=== PATIENT | male | born 1945 | race Caucasian/White ===

== ENCOUNTER → 2016-11-19 | Outpatient (CLI) | payer MEDICARE, OTHER | LOC: GMAH 11:28 | PROVIDERS: ATTEND Family Medicine | DX: E78.2 Mixed hyperlipidemia (principal); Z12.5 Encounter for screening for malignant neoplasm of prostate | CPT/HCPCS: 84443; 84550; G0103 ==

== ENCOUNTER → 2017-11-25 | Outpatient (CLI) | payer MEDICARE, OTHER | END | disposition home or self-care (01) | LOC: GMAH 10:16 | PROVIDERS: ATTEND Family Medicine | DX: Z12.5 Encounter for screening for malignant neoplasm of prostate (principal); E78.2 Mixed hyperlipidemia | CPT/HCPCS: 84443; 84550; G0103 ==

== ENCOUNTER → 2018-11-23 | Outpatient (CLI) | payer MEDICARE, OTHER | LOC: GMAH 10:33 | PROVIDERS: ATTEND Family Medicine | DX: I10 Essential (primary) hypertension (principal); Z12.5 Encounter for screening for malignant neoplasm of prostate | CPT/HCPCS: 84443; 84550; G0103 ==

== ENCOUNTER 2019-10-18 05:06 | Day surgery (SDC) | payer MEDICARE, OTHER ==
[2019-10-18] MEDS ORDERED: DEXAMETHASONE 0.1% OPHTH SOL 1 DROP LEFT_EYE ONE (08:02)
[2019-10-18] MEDS ORDERED: BRIMONIDINE 0.2% OPHTH DROPS LEFT_EYE ONE (08:02)
[2019-10-18] MEDS ORDERED: LIDOCAINE 1% MPF 2 ML VIAL INJ ONE (08:02)
[2019-10-18] MEDS ORDERED: TOBRAMYCIN SULF 0.3 % OPHT SOL 1 DROP LEFT_EYE ONE (08:02)
[2019-10-18] MEDS ORDERED: PROPARACAINE 0.5% OPHTH SOL 15 ML BTTL LEFT_EYE ONE (08:02)
[2019-10-18] MEDS ORDERED: MIDAZOLAM INJ 2 MG/2 ML VIAL ONE (08:05)
[2019-10-18] MEDS ORDERED: MOXIFLOXACIN HCL (OPHTH) 1 DROP DROPS LEFT_EYE ONE (08:45)
== END 2019-10-18 08:45 | disposition home or self-care (01) ==
LOC: AMB 05:06
PROVIDERS: ATTEND Ophthalmology
DX: E11.36 Type 2 diabetes mellitus with diabetic cataract (principal); H25.12 Age-related nuclear cataract, left eye; Z88.5 Allergy status to narcotic agent; Z88.8 Allergy status to other drugs, medicaments and biological substances; Z79.01 Long term (current) use of anticoagulants; Z79.84 Long term (current) use of oral hypoglycemic drugs; Z79.899 Other long term (current) drug therapy
CPT/HCPCS: 00142; 36416; 66984; 82948; J2250

== ENCOUNTER 2019-12-06 05:41 | Day surgery (SDC) | payer MEDICARE, OTHER ==
[2019-12-06] MEDS ORDERED: MOXIFLOXACIN HCL (OPHTH) 1 DROP DROPS ONE (06:32)
[2019-12-06] MEDS ORDERED: PROPARACAINE 0.5% OPHTH SOL 15 ML BTTL ONE (06:32)
[2019-12-06] MEDS ORDERED: TROP 1%/CYCLOPEN 1%/PHENYL 2% DROPS ONE (06:33)
[2019-12-06] MEDS ORDERED: BRIMONIDINE 0.2% OPHTH DROPS RIGHT_EYE ONE (09:05)
[2019-12-06] MEDS ORDERED: TOBRAMYCIN SULF 0.3 % OPHT SOL 1 DROP RIGHT_EYE ONE (09:05)
[2019-12-06] MEDS ORDERED: LIDOCAINE 1% 2 ML VIAL INJ ONE (09:05)
[2019-12-06] MEDS ORDERED: MOXIFLOXACIN HCL (OPHTH) 1 DROP DROPS RIGHT_EYE ONE (09:05)
[2019-12-06] MEDS ORDERED: PROPARACAINE 0.5% OPHTH SOL 15 ML BTTL RIGHT_EYE ONE (09:05)
[2019-12-06] MEDS ORDERED: DEXAMETHASONE 0.1% OPHTH SOL 1 DROP RIGHT_EYE ONE (09:05)
[2019-12-06] MEDS ORDERED: MIDAZOLAM INJ 2 MG/2 ML VIAL ONE (09:12)
== END 2019-12-06 10:15 | disposition home or self-care (01) ==
LOC: AMB 05:41
PROVIDERS: ATTEND Ophthalmology
DX: E11.36 Type 2 diabetes mellitus with diabetic cataract (principal); H25.11 Age-related nuclear cataract, right eye; Z88.5 Allergy status to narcotic agent; Z88.8 Allergy status to other drugs, medicaments and biological substances; Z79.01 Long term (current) use of anticoagulants; Z79.899 Other long term (current) drug therapy
CPT/HCPCS: 00142; 36416; 66984; 82948; J2250

== ENCOUNTER → 2020-04-11 | Outpatient (CLI) | payer MEDICARE, OTHER | LOC: ECHO 08:45 | PROVIDERS: ATTEND Family Medicine | DX: R60.0 Localized edema (principal); I51.7 Cardiomegaly ==

== ENCOUNTER 2020-09-24 16:53 | Emergency (ER) | payer MEDICARE, OTHER ==
[2020-09-24] MEDS ORDERED: SODIUM CHLORIDE 0.9% (FLUSH) 10 ML SYG IV PRN (17:28)
[2020-09-24] MEDS ORDERED: ACETAMINOPHEN 500 MG TAB PO ONE (17:28)
[2020-09-24] MEDS ORDERED: SODIUM CHLORIDE 0.9% 1000ML 1,000 ML IVS ONE (17:28)
--- NOTE | 2020-09-24 17:31 | ED.PDOC ---
History of Present Illness - General Time Seen by Provider: 09/24/20 17:12 Source: patient, RN notes reviewed, Vital Signs reviewed, family Exam Limitations: no limitations - History of Present Illness Initial Comments: Patient presents to ED for evaluation of fever and congestion. States he was sent over from urgent care due to having a fever of 101. States he was mowing 5 days ago and afterward developed frontal headache and congestion. This persisted so he went to urgent care today for evaluation and was sent to ED. He denies sore throat, chest pain, shortness of breath, abdominal pain, nausea, vomiting, diarrhea or any urinary symptoms. Has been taking [id number] decongestants at home with some relief. He denies any recent COVID-19 exposures or sick contacts. Reports history of atrial fibrillation. Allergies/Adverse Reactions: Allergies NO KNOWN ALLERGY Allergy (Verified 10/18/19 07:00) Home Medications: Ambulatory Orders Apixaban [Eliquis] 5 mg PO BID 10/18/19 Ascorbic Acid [Vitamin C] 500 mg PO DAILY 10/18/19 Glucosamine-Chondroitin [Glucosamine & Chondroitin 500-400 mg] 2 cap PO DAILY 10/18/19 Metformin HCl [Metformin Hydrochloride E] 500 mg PO BID 10/18/19 Multiple Vitamins W/ Minerals [Mens Multivitamin] 1 tab PO DAILY 10/18/19 [place]-3 Fatty Acids [Fish Oil] 2 cap PO DAILY 10/18/19 Pravastatin Sodium 40 mg PO DAILY 10/18/19 Prednisone 60 mg PO DAILY 5 Days #15 tab 09/24/20 Review of Systems - Review of Systems Constitutional: States: fever, malaise. Denies: chills EENTM: States: nose congestion. Denies: ear pain, throat pain, throat swelling Respiratory: States: cough. Denies: short of breath, wheezing Cardiology: Denies: chest pain, palpitations, syncope Gastrointestinal/Abdominal: Denies: abdominal pain, diarrhea, nausea, vomiting Genitourinary: Denies: dysuria Musculoskeletal: Denies: back pain, joint pain Skin: Denies: rash All other Systems: Reviewed and Negative Past Medical History (General) - Patient Medical History Hx Congestive Heart Failure: No Hx Diabetes: Yes - 194 Hx MRSA: No Family Medical History - Family History Mother Family History: No Known Living Status: Physical Exam - Physical Exam General Appearance: Alert, Comfortable, No apparent distress, Other - Seated on bed in no distress. Nontoxic appearing Ears, Nose, Throat: other - TTP bilateral maxillary sinuses Neck: full range of motion, supple, other - no meningismus Respiratory: chest non-tender, lungs clear, normal breath sounds, no respiratory distress, no accessory muscle use Cardiovascular/Chest: regular rate, rhythm, no edema, tachycardia, irregularly irregular Gastrointestinal/Abdominal: non tender, soft, no pulsatile mass Back Exam: normal inspection, no vertebral tenderness Extremity: non-tender, normal inspection, no pedal edema Neurologic: no motor/sensory deficits, alert, normal mood/affect Skin Exam: normal color Progress - Progress Progress: 09/24/20 19:40 Patient presents to ED with 4-day history of nasal congestion and sinus pressure. He denies feeling short of breath, fatigue or chest pain. His COVID- 19 swab is positive. Chest x-ray is unremarkable. He denies feeling short of breath and his O2 sats on room air is 91 to 93%. I have offered admission for COVID-19 and further evaluation, but patient states he feels fine and declines. I have discussed that at any point if he gets more short of breath he will need to return to ED immediately and patient agrees with this plan. I have asked him to follow-up with his PCP in 1 to 2 days for continued evaluation. Will treat with Decadron IV here and start 5-day course of prednisone at home. Strict return precautions given. Self quarentine discussed. - Results/Orders Results/Orders: EKG-@1737- atrial fibrillation, rate 98, nml QRS interval, nonspecific ST abnormality EKG @ 1844- afib, rate 97, nml QRS interval, nonspecific ST abnormality CHEST XRAY EXAM DESCRIPTION: Chest,1 View CLINICAL HISTORY: cough COMPARISON: None FINDINGS: Cardiac silhouette is within normal limits. Imaging of the lower lungs is degraded by superimposed soft tissues. EKG leads project over the chest. There is no focal parenchymal or pleural disease. There is no acute osseous process visualized. IMPRESSION: Imaging of the lower lungs are degraded by superimposed soft tissues. Recommend follow-up. COVID SWAB POSITIVE 09/24/20 17:28 Sodium Chloride 0.9% (Flush) [Saline Flush Syringe] 10 ml IV PRN PRN EKG Stat Pulse Ox Stat URINALYSIS Stat 09/24/20 18:06 BLOOD CULTURE Stat 09/24/20 19:00 EKG STAT 09/24/20 19:30 LACTIC ACID Q2H Laboratory Results - last 24 hr 09/24/20 09/24/20 09/24/20 18:06 18:06 18:06 WBC 3.5 L RBC 4.25 L Hgb 14.0 Hct 40.8 L MCV 96.1 H MCH 33.0 H MCHC 34.4 RDW 12.7 Plt Count 201 MPV 7.5 Absolute Neuts (auto) 2.40 Absolute Lymphs (auto) 0.80 L Absolute Monos (auto) 0.30 Absolute Eos (auto) 0.00 Absolute Basos (auto) 0.00 Neutrophils % 68.1 Lymphocytes % 23.1 Monocytes % 8.0 Eosinophils % 0.3 L Basophils % 0.5 PT 10.1 INR 1.02 PTT (SP) 30.1 Sodium 136 Potassium 4.4 Chloride 98 L Carbon Dioxide 24 Anion Gap 18.4 H BUN 16 Creatinine 0.92 BUN/Creatinine Ratio 17.4 Random Glucose 120 H Serum Osmolality 274.3 L Lactic Acid Calcium 9.0 Total Bilirubin 0.6 AST 45 H ALT 48 Alkaline Phosphatase 80 Serum Total Protein 7.6 Albumin 4.3 Globulin 3.3 Albumin/Globulin Ratio 1.3 09/24/20 18:06 WBC RBC Hgb Hct MCV MCH MCHC RDW Plt Count MPV Absolute Neuts (auto) Absolute Lymphs (auto) Absolute Monos (auto) Absolute Eos (auto) Absolute Basos (auto) Neutrophils % Lymphocytes % Monocytes % Eosinophils % Basophils % PT INR PTT (SP) Sodium Potassium Chloride Carbon Dioxide Anion Gap BUN Creatinine BUN/Creatinine Ratio Random Glucose Serum Osmolality Lactic Acid 2.0 Calcium Total Bilirubin AST ALT Alkaline Phosphatase Serum Total Protein Albumin Globulin Albumin/Globulin Ratio Departure - Departure Clinical Impression: COVID-19 Atrial fibrillation Qualifiers: Atrial fibrillation type: persistent (not longstanding) Qualified Code(s): I48.19 - Other persistent atrial fibrillation; I48.1 - Persistent atrial fibrillation Time of Disposition: 19:44 Disposition: Discharge to Home or Self Care Condition: Fair Instructions: Coronavirus Disease 2019 (COVID-19) Diet: resume usual diet Activity: increase activity as tolerated Referrals: Yaakov Arvizu MD [Primary Care Provider] - 1-2 Days Prescriptions: Prednisone 60 mg PO DAILY 5 Days #15 tab Home Medications: Ambulatory Orders Apixaban [Eliquis] 5 mg PO BID 10/18/19 Ascorbic Acid [Vitamin C] 500 mg PO DAILY 10/18/19 Glucosamine-Chondroitin [Glucosamine & Chondroitin 500-400 mg] 2 cap PO DAILY 10/18/19 Metformin HCl [Metformin Hydrochloride E] 500 mg PO BID 10/18/19 Multiple Vitamins W/ Minerals [Mens Multivitamin] 1 tab PO DAILY 10/18/19 [place]-3 Fatty Acids [Fish Oil] 2 cap PO DAILY 10/18/19 Pravastatin Sodium 40 mg PO DAILY 10/18/19 Prednisone 60 mg PO DAILY 5 Days #15 tab 09/24/20 Comments: Return to ED for difficulty breathing or any worsening of symptoms
[2020-09-24 18:13] VITALS: TEMP 99.6
--- NOTE | 2020-09-24 18:24 | RAD ---
EXAM DESCRIPTION: Chest,1 View CLINICAL HISTORY: cough COMPARISON: None FINDINGS: Cardiac silhouette is within normal limits. Imaging of the lower lungs is degraded by superimposed soft tissues. EKG leads project over the chest. There is no focal parenchymal or pleural disease. There is no acute osseous process visualized. IMPRESSION: Imaging of the lower lungs are degraded by superimposed soft tissues. Recommend follow-up. Electronically signed by: Ralph Jackson MD 09/24/2020 6:23 PM [facility]
[2020-09-24] MEDS ORDERED: DEXAMETHASONE INJ 10 MG/ML VIAL IV ONE (19:39)
[2020-09-24 20:22] VITALS: BP 100/73; O2SAT 90
== END 2020-09-24 20:10 | disposition home or self-care (01) ==
LOC: ER 16:53
DX: U07.1 COVID-19 (principal); I48.4 Atypical atrial flutter; E11.9 Type 2 diabetes mellitus without complications; Z79.84 Long term (current) use of oral hypoglycemic drugs; Z79.899 Other long term (current) drug therapy; Z79.01 Long term (current) use of anticoagulants
CPT/HCPCS: 36415; 71045; 80053; 83605; 85025; 85610; 85730; 87040; 87635; 93005; 94760; A4216; J1100; J7030

== ENCOUNTER 2020-09-28 12:42 | Inpatient (IN) | payer MEDICARE, OTHER ==
[2020-09-28] MEDS ORDERED: REMDESIVIR 200 MG in SODIUM CHLORIDE 0.9% 250ML 250 ML IVPB ONE (13:49)
[2020-09-28] MEDS ORDERED: DEXAMETHASONE INJ 4 MG/ML VIAL IV ONE (13:49)
--- NOTE | 2020-09-28 14:16 | CT ---
Study: CT Chest. Indication: covid, hypoxia Technique: CT imaging of the chest obtained without intravenous administration of contrast. This exam was performed according to our departmental dose-optimization program, which includes automated exposure control, adjustment of the mA and/or kV according to patient size and/or use of iterative reconstruction technique. Comparison: None. Findings: Atherosclerosis and coronary arteries and aorta. Mild cardiomegaly. Scattered reactive size mediastinal lymph nodes. Degenerative changes of the spine noted. Extensive patchy areas of groundglass attenuation throughout the bilateral lungs most pronounced in the peripheral aspects. Findings concerning for pneumonia. No pleural effusion or pneumothorax. Impression: Extensive patchy groundglass opacities throughout bilateral lungs concerning for pneumonia but nonspecific. COVID-19 could give this appearance. Additional findings as above. Electronically signed by: Sundeep Merrill MD 09/28/2020 2:14 PM [employer]
[2020-09-28] MEDS ORDERED: PIPERACILLIN/TAZOBACTAM 3.375 GM in SODIUM CHLORIDE 0.9% 100ML 100 ML IVPB ONE (15:06)
--- NOTE | 2020-09-28 15:25 | ED.PDOC ---
History of Present Illness - General Chief Complaint: Respiratory Problem Time Seen by Provider: 09/28/20 12:48 Source: patient Exam Limitations: no limitations - History of Present Illness Initial Comments: The patient is a 74-year-old male presented emergency room secondary to worsening shortness of breath. The patient has known coronavirus for at least the last several days. He was started on oral steroids for it but was not placed on azithromycin secondary to long QT. The patient has been having increasing fevers over the last couple of days. No nausea or vomiting. He is saturating 86 to 88% on room air here and does not have oxygen at home. He does normally use CPAP at night. The patient is morbidly obese and does have significant coronary artery disease. Is also a diabetic. He is a high risk patient. The patient does appear pale. He is currently in atrial flutter but rate controlled. He does have a history of atrial fibrillation but is not on any rate control medications. He does already take Eliquis. Timing/Duration: other - 4 days Severity: moderate Improving Factors: nothing Worsening Factors: nothing Associated Symptoms: cough, malaise, shortness of breath Allergies/Adverse Reactions: Allergies NO KNOWN ALLERGY Allergy (Verified 10/18/19 07:00) Home Medications: Ambulatory Orders Apixaban [Eliquis] 5 mg PO BID 10/18/19 Ascorbic Acid [Vitamin C] 500 mg PO DAILY 10/18/19 Glucosamine-Chondroitin [Glucosamine & Chondroitin 500-400 mg] 2 cap PO DAILY 10/18/19 Metformin HCl [Metformin Hydrochloride E] 500 mg PO BID 10/18/19 Multiple Vitamins W/ Minerals [Mens Multivitamin] 1 tab PO DAILY 10/18/19 [place]-3 Fatty Acids [Fish Oil] 2 cap PO DAILY 10/18/19 Pravastatin Sodium 40 mg PO DAILY 10/18/19 Prednisone 60 mg PO DAILY 5 Days #15 tab 09/24/20 Review of Systems - Review of Systems Constitutional: States: fever, malaise, weakness - Generalized EENTM: States: nose congestion Respiratory: States: cough, short of breath Cardiology: States: no symptoms reported Gastrointestinal/Abdominal: States: no symptoms reported Genitourinary: States: no symptoms reported Musculoskeletal: States: no symptoms reported Skin: States: no symptoms reported Neurological: States: no symptoms reported Endocrine: States: no symptoms reported All other Systems: No Change from Baseline Past Medical History (General) - Patient Medical History Hx Seizures: No Hx Stroke: No Hx Dementia: No Hx Asthma: No Hx of COPD: No Hx Cardiac Disorders: Yes - A FIB Hx Congestive Heart Failure: No Hx Pacemaker: No Hx Hypertension: No Hx Thyroid Disease: No Hx Diabetes: Yes Hx Gastroesophageal Reflux: No Hx Renal Disease: No Hx Cancer: No Hx of HIV: No Hx Hepatitis C: No Hx MRSA: No Surgical History: no surgical history - Vaccination History Hx Tetanus, Diphtheria Vaccination: Yes Hx Influenza Vaccination: Yes Hx Pneumococcal Vaccination: Yes - Social History Hx Tobacco Use: No Hx Chewing Tobacco Use: No Hx Alcohol Use: No Hx Substance Use: No Hx Substance Use Treatment: No Hx Depression: No Feels Threatened In Home Enviroment: No Feels Threatened In a Relationship: No Hx Physical Abuse: No Hx Emotional Abuse: No Hx Suspected Abuse: No - Female History Patient is a Female of Child Bearing Age (10 -59 yrs old): No Patient : No - Triage Comment ED Triage Comment: The patient was alert and oriented times 4 and was obviously short of breath. He did not appear in distress but complained of the shortness of breath and weakness and body aches. He had no other stated complaints during assessment. Family Medical History - Family History Mother Family History: No Known Living Status: Physical Exam - Physical Exam General Appearance: Alert, Comfortable, No apparent distress Ears, Nose, Throat: normal pharynx Neck: full range of motion, supple Respiratory: no respiratory distress, no accessory muscle use, wheezing - Mild scattered Cardiovascular/Chest: other - +1 edema Peripheral Pulses: radial,right: 2+, radial,left: 2+ Gastrointestinal/Abdominal: soft - Morbidly obese Rectal Exam: deferred Back Exam: no CVA tenderness, no vertebral tenderness Extremity: normal range of motion, non-tender, no calf tenderness, normal capillary refill, pedal edema - +1 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 He is now requiring oxygen. Due to the long QT, he will be placed on Zosyn rather than azithromycin. He was given IV dexamethasone and has been started on IV remdesivir. Blood sugars will need to be watched closely. He is now also on supplemental oxygen. Consideration could be given towards a trial of a nebulizer treatment, however this needs to be done on telemetry monitoring. The patient does very high mortality rate given his comorbidities. We will plan to monitor closely. Blood culture has been done. The patient is already taking Eliquis. [email or web address] [id number] - Results/Orders Results/Orders: CT scan of the chest shows scattered pneumonia consistent with coronavirus. See report for details. EKG on telemetry monitoring show atrial flutter that is rate controlled at 90 bpm. Normal axis. Normal R wave progression. No definitive ST or T wave changes indicative of acute ischemia. There is a prolonged QT interval. Laboratory Tests 09/28/20 09/28/20 09/28/20 13:45 13:45 13:45 WBC 10.2 RBC 3.85 L Hgb 12.7 L Hct 36.8 L MCV 95.6 H MCH 33.0 H MCHC 34.5 RDW 13.0 Plt Count 208 MPV 7.0 L Absolute Neuts (auto) 9.70 H Absolute Lymphs (auto) 0.30 L Absolute Monos (auto) 0.20 Absolute Eos (auto) 0.00 Absolute Basos (auto) 0.00 Neutrophils % 94.5 H Lymphocytes % 3.1 L Monocytes % 2.2 Eosinophils % 0.0 L Basophils % 0.2 PT INR PTT (SP) Fibrinogen D-Dimer, Quantitative Sodium 137 Potassium 4.3 Chloride 100 L Carbon Dioxide 26 Anion Gap 15.3 BUN 23 H Creatinine 1.00 BUN/Creatinine Ratio 23.0 H Random Glucose 230 H Serum Osmolality 284.8 Lactic Acid Calcium 8.6 Magnesium 1.7 L Ferritin 1459.2 H Total Bilirubin 0.7 AST 26 ALT 33 Alkaline Phosphatase 61 LD Total 165 Creatine Kinase 23 L CK-MB (CK-2) 1.4 CK-MB (CK-2) % Not Reportable Troponin I 0.02 C-Reactive Protein 22.4 H* B-Natriuretic Peptide 168.0 H Serum Total Protein 6.7 Albumin 3.4 Globulin 3.3 Albumin/Globulin Ratio 1.0 L TSH 2.06 09/28/20 09/28/20 13:45 13:45 WBC RBC Hgb Hct MCV MCH MCHC RDW Plt Count MPV Absolute Neuts (auto) Absolute Lymphs (auto) Absolute Monos (auto) Absolute Eos (auto) Absolute Basos (auto) Neutrophils % Lymphocytes % Monocytes % Eosinophils % Basophils % PT 11.0 H INR 1.11 PTT (SP) 37.1 H Fibrinogen 748 H* D-Dimer, Quantitative < 131.0 L Sodium Potassium Chloride Carbon Dioxide Anion Gap BUN Creatinine BUN/Creatinine Ratio Random Glucose Serum Osmolality Lactic Acid 1.3 Calcium Magnesium Ferritin Total Bilirubin AST ALT Alkaline Phosphatase LD Total Creatine Kinase CK-MB (CK-2) CK-MB (CK-2) % Troponin I C-Reactive Protein B-Natriuretic Peptide Serum Total Protein Albumin Globulin Albumin/Globulin Ratio TSH Departure - Departure Clinical Impression: Pneumonia due to 2019-nCoV, Atrial fibrillation and flutter Disposition: Admit Patient Departure Forms: ED Discharge - Pt. Copy, Patient Portal Self Enrollment Referrals: Yaakov Arvizu MD [Primary Care Provider] - 1-2 Weeks Home Medications: Ambulatory Orders Apixaban [Eliquis] 5 mg PO BID 10/18/19 Ascorbic Acid [Vitamin C] 500 mg PO DAILY 10/18/19 Glucosamine-Chondroitin [Glucosamine & Chondroitin 500-400 mg] 2 cap PO DAILY 10/18/19 Metformin HCl [Metformin Hydrochloride E] 500 mg PO BID 10/18/19 Multiple Vitamins W/ Minerals [Mens Multivitamin] 1 tab PO DAILY 10/18/19 [place]-3 Fatty Acids [Fish Oil] 2 cap PO DAILY 10/18/19 Pravastatin Sodium 40 mg PO DAILY 10/18/19 Prednisone 60 mg PO DAILY 5 Days #15 tab 09/24/20 Decision To Admit - Decistion To Admit Decision to Admit Reason: Medical Nature Decision to Admit Date: 09/28/20 Decision to Admit Time: 15:29
--- NOTE | 2020-09-28 16:29 | HP ---
SUPERVISING PHYSICIAN: Yaakov Arvziu MD CHIEF COMPLAINT: Shortness of breath. HISTORY OF PRESENT ILLNESS: This is a 74-year-old male patient who came to the hospital with worsening shortness of breath. Apparently he was diagnosed with COVID-19 on Friday. He was started on oral steroids. He was not placed on azithromycin due to QT prolongation. However, he continued to have fever as well as O2 saturations dropping to about 86 to 88%. He came to the Emergency Room with those complaints and his workup showed hypoxia in the ER. He was about 88%. He was placed on nasal cannula and increased to 96%. Chemistry was unremarkable. Lactic acid was normal. CRP was 22.4. BNP slightly elevated at 168. Coagulation studies show fibrinogen 748, but D-dimer less than 131. CBC unremarkable. He did have a 94.5% left shift. He was referred for admission due to hypoxemic respiratory failure and COVID-19. PAST MEDICAL HISTORY: 1. Hypertension. 2. Hyperlipidemia. 3. Atrial fibrillation. 4. Morbid obesity. 5. Obstructive sleep apnea. 6. Diabetes mellitus, type 2. PAST SURGICAL HISTORY: 1. Cataract surgery. 2. Hernia repair. MEDICATIONS: Please see R&V list once verified in the computer. ALLERGIES: NO KNOWN DRUG ALLERGIES. FAMILY HISTORY: Reviewed and noncontributory. SOCIAL HISTORY: The patient quit smoking in the 80s, quit drinking in the 80s. No illicit drugs. REVIEW OF SYSTEMS: CONSTITUTIONAL: Positive for fever and chills. No recent weight loss or weight gain. Positive for fatigue. HEENT: Positive for nasal drainage. No throat pain. RESPIRATORY: Positive for cough, shortness of breath. No hemoptysis or pleuritic chest pain. CARDIOVASCULAR: No chest pain, palpitations or peripheral edema. GASTROINTESTINAL: No nausea, vomiting, diarrhea, constipation or abdominal pain. GENITOURINARY: No dysuria, frequency or flank pain. ENDOCRINE: No polydipsia, polyuria or polyphagia. No heat or cold intolerance. MUSCULOSKELETAL: No joint pain, joint swelling or muscle cramps. NEUROLOGIC: No syncope, paresthesias or seizures. HEMATOLOGIC: No easy bruising and no transfusion reaction. PHYSICAL EXAMINATION: VITAL SIGNS: Blood pressure 155/77, heart rate 94, respiratory rate 16, temperature 98.2, oxygen saturation 96% on 2 liters via nasal cannula. GENERAL: Mr. Velazquez is a 74-year-old male patient who is in no severe distress at this time. NEUROLOGIC: The patient is alert. LUNGS: Diminished in the bases and diffusely diminished with no active wheezing, rhonchi or rales. CARDIOVASCULAR: Irregular rate and rhythm. Normal S1, S2. ABDOMEN: Soft, obese. Positive bowel sounds. GENITOURINARY: Deferred. EXTREMITIES: Lower extremities with trace ankle edema. LABORATORY: Labs as discussed in history of present illness. RADIOLOGY: He did have a CT scan of the chest which was consistent with COVID- 19 with bilateral patchy ground glass opacities. IMPRESSION: 1. COVID-19 pneumonitis. 2. Obstructive sleep apnea utilizing CPAP at home. 3. Hypertension. 4. Hyperlipidemia. 5. Diabetes mellitus, type 2. PLAN: The patient will be admitted for COVID-19 pneumonitis. He will be placed on typical medications including dexamethasone and Remdesivir. We are withholding azithromycin due to QT prolongation. We will proceed with Rocephin. I will resume his home medications including the Eliquis that he takes at home once they are verified in the computer. Repeat labs and x-rays tomorrow as well. #[id number] [facility]
[2020-09-28] MEDS ORDERED: SODIUM CHLORIDE 0.9% (FLUSH) 10 ML SYG IV PRN (18:31)
[2020-09-28] MEDS ORDERED: SODIUM CHL 0.9% 50ML MIN-BAG+ 50 ML IVPB ONE (18:58)
[2020-09-28] MEDS ORDERED: cefTRIAXone SODIUM 1 GM VIAL ONE (18:58)
[2020-09-28] MEDS: cefTRIAXone SODIUM 1 GM in SODIUM CHL 0.9% 50ML MIN-BAG+ 50 ML IVPB SCH (19:08)
[2020-09-28] MEDS: IV SET AND CAP CHANGE INJ INJ SCH (19:08)
[2020-09-28] MEDS: APIXABAN 5 MG TAB PO SCH (20:36)
[2020-09-28] MEDS ORDERED: metFORMIN XR 500 MG TAB.ER.24 PO SCH (21:00)
[2020-09-28] MEDS: ALBUTEROL INHALER 64 PUFF/8GM INH SCH (22:05)
[2020-09-29] MEDS: ALBUTEROL INHALER 64 PUFF/8GM INH SCH ×6 (05:00→21:32)
--- NOTE | 2020-09-29 06:45 | RAD ---
EXAM: XR Chest, 1 View CLINICAL HISTORY: The patient is 74 years old and is Male; covid-19 TECHNIQUE: Frontal view of the chest. COMPARISON: Chest radiograph September 24, 2020 FINDINGS: LUNGS: Worsening bilateral pulmonary opacities specifically in the lower lobes is noted. PLEURAL SPACE: Unremarkable. No pneumothorax. HEART: The cardiac silhouette is enlarged. MEDIASTINUM: Unremarkable. BONES/JOINTS: There are degenerative changes of the bones. VASCULATURE: Atherosclerosis of the aorta is present. IMPRESSION: Findings suggest worsening bibasilar opacities. Electronically signed by: Angelique Chicas MD 09/29/2020 6:43 AM [facility]
[2020-09-29] MEDS ORDERED: [UNRECOGNIZED DRUG - OTHER] PO SCH (09:00)
[2020-09-29] MEDS ORDERED: GLUCOSAMINE CHONDROITIN PO SCH (09:00)
[2020-09-29] MEDS: GLIMEPIRIDE 2 MG TAB PO SCH (09:03)
[2020-09-29] MEDS: APIXABAN 5 MG TAB PO SCH ×2 (09:03→20:48)
[2020-09-29] MEDS: FISH OIL 1,200 MG CAP PO SCH (09:03)
[2020-09-29] MEDS: MULTIPLE VITAMINS W/ MINERALS 1 EA TAB PO SCH (09:04)
[2020-09-29] MEDS: metFORMIN XR 500 MG TAB.ER.24 PO SCH ×2 (09:04→17:49)
[2020-09-29] MEDS: ACETAMINOPHEN 325 MG TAB PO PRN (09:04)
[2020-09-29] MEDS: DEXAMETHASONE INJ 10 MG/ML VIAL IV SCH (09:04)
[2020-09-29] MEDS: ASCORBIC ACID 500 MG TAB PO SCH (10:00)
--- NOTE | 2020-09-29 11:18 | PCM.PROG ---
PCM Subjective - Review of Systems Events since last encounter: Mr. Velazquez does not feel a whole lot different than he did yesterday. He has no increase in shortness of breath. Still with non-productive cough. Objective - Exam Vitals and I&O: Vital Signs Temp 98.0 F 09/29/20 05:00 Pulse 97 H 09/29/20 07:00 Resp 16 09/29/20 07:00 BP 149/88 09/29/20 05:00 Pulse Ox 92 L 09/29/20 05:00 Intake & Output 09/28/20 09/29/20 09/29/20 18:59 06:59 18:59 Intake Total 400 Output Total 1100 Balance -700 Weight 331 lb 14.4 oz Intake: Oral 400 Output: Urine 1100 Other: Weight Measurement Method Built in [facility] General: Alert, Oriented x3, Cooperative, No acute distress HEENT: PERRLA, EOMI Neck: Supple Lungs: Other - Diminished in the bases with some mild rales Cardiovascular: Other - Atrial flutter with controlled rate Abdomen: Normal bowel sounds, Soft Extremities: Normal pulses Psych/Mental Status: Mental status NL - Results Results: Laboratory Results WBC 11.2 K/mm3 (4.8-10.8) H 09/29/20 05:57 RBC 3.84 M/mm3 (4.70-6.10) L 09/29/20 05:57 Hgb 12.6 gm/dL (14.0-18.0) L 09/29/20 05:57 Hct 37.5 % (42.0-52.0) L 09/29/20 05:57 MCV 97.5 fl (80.0-94.0) H 09/29/20 05:57 MCH 32.8 pg (27.0-31.0) H 09/29/20 05:57 MCHC 33.6 g/dL (33.0-37.0) 09/29/20 05:57 RDW 12.8 % (11.5-14.5) 09/29/20 05:57 Plt Count 260 K/mm3 (130-400) 09/29/20 05:57 MPV 7.6 fl (7.40-10.4) 09/29/20 05:57 Absolute Neuts (auto) 10.30 K/uL (1.8-6.8) H 09/29/20 05:57 Absolute Lymphs (auto) 0.60 K/uL (1.0-3.4) L 09/29/20 05:57 Absolute Monos (auto) 0.30 K/uL (0.2-0.8) 09/29/20 05:57 Absolute Eos (auto) 0.00 K/uL (0.0-0.4) 09/29/20 05:57 Absolute Basos (auto) 0.00 K/uL (0.0-0.1) 09/29/20 05:57 Neutrophils % 92.1 % (42.0-78.0) H 09/29/20 05:57 Lymphocytes % 5.4 % (20.0-50.0) L 09/29/20 05:57 Monocytes % 2.4 % (2.0-9.0) 09/29/20 05:57 Eosinophils % 0.0 % (1.0-5.0) L 09/29/20 05:57 Basophils % 0.1 % (0.0-2.0) 09/29/20 05:57 PT 11.0 SECONDS (9.0-10.9) H 09/28/20 13:45 INR 1.11 (0.9-1.15) 09/28/20 13:45 PTT (SP) 38.3 SECONDS (21.8-31.6) H 09/29/20 05:57 Fibrinogen 782 mg/dL (210-385) H* 09/29/20 05:57 D-Dimer, Quantitative 190.0 ng/ml (131-400) 09/29/20 05:57 Sodium 138 mmol/L (135-145) 09/29/20 05:57 Potassium 4.2 mmol/L (3.6-5.0) 09/29/20 05:57 Chloride 101 mmol/L (101-111) 09/29/20 05:57 Carbon Dioxide 24 mmol/L (21-31) 09/29/20 05:57 Anion Gap 17.2 (12-18) 09/29/20 05:57 BUN 19 mg/dL (7-18) H 09/29/20 05:57 Creatinine 0.83 mg/dL (0.6-1.3) 09/29/20 05:57 BUN/Creatinine Ratio 22.9 (10-20) H 09/29/20 05:57 Random Glucose 187 mg/dL (70-105) H 09/29/20 05:57 Serum Osmolality 282.9 mOsm/L (275-295) 09/29/20 05:57 Lactic Acid 1.3 mmol/L (0.5-2.2) 09/28/20 13:45 Calcium 8.5 mg/dL (8.4-10.2) 09/29/20 05:57 Magnesium 1.8 mg/dL (1.8-2.5) 09/29/20 05:57 Ferritin 1459.2 ng/mL (23.9-336.2) H 09/28/20 13:45 Total Bilirubin 0.3 mg/dL (0.2-1.0) 09/29/20 05:57 AST 27 IU/L (10-42) 09/29/20 05:57 ALT 30 IU/L (10-60) 09/29/20 05:57 Alkaline Phosphatase 59 IU/L (42-121) 09/29/20 05:57 LD Total 165 IU/L (91-180) 09/28/20 13:45 Creatine Kinase 35 IU/L (38-174) L D 09/29/20 05:57 CK-MB (CK-2) 1.4 ng/mL (0.0-4.4) 09/28/20 13:45 CK-MB (CK-2) % Not Reportable 09/28/20 13:45 Troponin I 0.02 ng/mL (0.01-0.05) 09/28/20 13:45 C-Reactive Protein 27.3 mg/dL (0-1.0) H* D 09/29/20 05:57 B-Natriuretic Peptide 168.0 pg/ml (0-100) H 09/28/20 13:45 Serum Total Protein 6.9 gm/dL (6.4-8.2) 09/29/20 05:57 Albumin 3.3 g/dl (3.2-5.5) 09/29/20 05:57 Globulin 3.6 gm/dL (2.3-3.5) H 09/29/20 05:57 Albumin/Globulin Ratio 0.9 (1.1-1.9) L 09/29/20 05:57 TSH 2.06 uIU/mL (0.34-5.60) 09/28/20 13:45 Assessment/Plan - Problem(s) (1) COVID-19 Plan: Continue remdesevir, dexamethasone, and empiric antibiotics. Continue albuterol and mucinex. Spoke with the patient's , and his normal O2 saturation is 88- 90%. He is currently on 5L via NC. So we will adjust goal for him to be in that range. Discussed potential escalation of care, to include intubation, and he agrees if necessary. (2) Atrial fibrillation and flutter Plan: continue current medications including Eliquis (3) ADILENE on CPAP Plan: CPAP at HS and PRN. May potentially need NIV if worsened oxygenation. (4) Diabetes mellitus type 2 in obese Plan: Continue PO medications, and adding sliding scale insulin coverage as well
[2020-09-29] MEDS ORDERED: DEXTROSE 50% 25 GM/50 ML SYG IV PRN (11:24)
[2020-09-29] MEDS ORDERED: GLUCAGON INJ 1 MG VIAL SUBCU PRN (11:24)
[2020-09-29] MEDS: guaiFENesin ER TAB 600 MG TAB PO SCH ×2 (12:36→20:48)
[2020-09-29] MEDS: INSULIN LISPRO 100 UNITS/ML PEN SUBCU SCH ×3 (13:50→20:54)
[2020-09-29] MEDS: REMDESIVIR 100 MG in SODIUM CHLORIDE 0.9% 250ML 250 ML IVPB SCH (14:21)
[2020-09-29] MEDS ORDERED: FUROSEMIDE INJ 20 MG/2 ML VIAL ONE (14:28)
[2020-09-29] MEDS: FUROSEMIDE INJ 20 MG/2 ML VIAL IV SCH (17:49)
[2020-09-29] MEDS: cefTRIAXone SODIUM 1 GM in SODIUM CHL 0.9% 50ML MIN-BAG+ 50 ML IVPB SCH (17:49)
[2020-09-29] MEDS ORDERED: PRAVASTATIN SODIUM 20 MG TAB ONE (19:28)
[2020-09-29] MEDS: PRAVASTATIN SODIUM 20 MG TAB PO SCH (20:48)
[2020-09-30] MEDS: ALBUTEROL INHALER 64 PUFF/8GM INH SCH ×6 (01:00→20:54)
[2020-09-30] MEDS: INSULIN LISPRO 100 UNITS/ML PEN SUBCU SCH ×4 (08:41→20:44)
[2020-09-30] MEDS: FISH OIL 1,200 MG CAP PO SCH (10:05)
[2020-09-30] MEDS: APIXABAN 5 MG TAB PO SCH ×2 (10:05→20:38)
[2020-09-30] MEDS: GLIMEPIRIDE 2 MG TAB PO SCH (10:05)
[2020-09-30] MEDS: DEXAMETHASONE INJ 10 MG/ML VIAL IV SCH (10:05)
[2020-09-30] MEDS: guaiFENesin ER TAB 600 MG TAB PO SCH ×2 (10:06→20:38)
[2020-09-30] MEDS: MULTIPLE VITAMINS W/ MINERALS 1 EA TAB PO SCH (10:06)
[2020-09-30] MEDS: ASCORBIC ACID 500 MG TAB PO SCH (10:06)
[2020-09-30] MEDS: FUROSEMIDE INJ 20 MG/2 ML VIAL IV SCH ×2 (10:07→17:29)
[2020-09-30] MEDS: metFORMIN XR 500 MG TAB.ER.24 PO SCH ×2 (10:17→17:29)
--- NOTE | 2020-09-30 12:05 | PN ---
SUPERVISING PHYSICIAN: Yaakov Arvizu MD DATE: 09/30/20 SUBJECTIVE: The patient does not feel like he has a change in his status. He does not feel any worse, doesn't feel any better. He does have an occasional cough, shortness of breath with exertion but that's not out of the normal for him either. OBJECTIVE: VITAL SIGNS: Blood pressure 153/76, heart rate 87, respiratory rate 18, temperature 98.2, oxygen saturation 90% on 5 liters via nasal cannula. GENERAL: Mr. Velazquez is a 74 year-old male patient who is ill in appearance but not in distress currently. NEUROLOGICAL: He is alert. LUNGS: The patient is with some mild rales. HEART: Irregular rate and rhythm with atrial flutter per the remelt sugar boiler. ABDOMEN: Soft, obese, positive bowel sounds. EXTREMITIES: Lower extremities with 2+ edema. 2+ pulses with capillary less than 2 seconds. LABORATORY: White count 6.3, hemoglobin 13.1, hematocrit 37.8, platelet count 279. D-dimer 205. Chemistry not reported as of yet. IMPRESSION: 1. COVID-19 pneumonitis. 2. Atrial flutter, on C-PAP. 3. Diabetes mellitus, type 2. PLAN: We will continue to utilize dexamethasone, Remdesivir as well as empiric antibiotics. Once again, oxygen saturation at 88 to 90% is acceptable for him, given his chronic health conditions. He is currently requiring 5 liters to maintain that at this time. Continue all other medications. Recheck labs and x- rays tomorrow. #[id number] [facility]
[2020-09-30] MEDS: REMDESIVIR 100 MG in SODIUM CHLORIDE 0.9% 250ML 250 ML IVPB SCH (17:29)
[2020-09-30] MEDS: cefTRIAXone SODIUM 1 GM in SODIUM CHL 0.9% 50ML MIN-BAG+ 50 ML IVPB SCH (17:29)
[2020-09-30] MEDS: ACETAMINOPHEN 325 MG TAB PO PRN (17:30)
[2020-09-30] MEDS: PRAVASTATIN SODIUM 20 MG TAB PO SCH (20:38)
[2020-10-01] MEDS: ALBUTEROL INHALER 64 PUFF/8GM INH SCH ×6 (00:39→20:00)
[2020-10-01] MEDS: PANTOPRAZOLE SODIUM IV 40 MG VIAL IV SCH (05:52)
[2020-10-01] MEDS: INSULIN LISPRO 100 UNITS/ML PEN SUBCU SCH ×4 (09:07→21:06)
[2020-10-01] MEDS: guaiFENesin ER TAB 600 MG TAB PO SCH ×2 (09:31→20:05)
[2020-10-01] MEDS: MULTIPLE VITAMINS W/ MINERALS 1 EA TAB PO SCH (09:31)
[2020-10-01] MEDS: metFORMIN XR 500 MG TAB.ER.24 PO SCH ×2 (09:31→16:00)
[2020-10-01] MEDS: ASCORBIC ACID 500 MG TAB PO SCH (09:31)
[2020-10-01] MEDS: APIXABAN 5 MG TAB PO SCH ×2 (09:31→20:05)
[2020-10-01] MEDS: DEXAMETHASONE INJ 10 MG/ML VIAL IV SCH (09:32)
[2020-10-01] MEDS: GLIMEPIRIDE 2 MG TAB PO SCH (09:32)
[2020-10-01] MEDS: FISH OIL 1,200 MG CAP PO SCH (09:32)
[2020-10-01] MEDS: FUROSEMIDE INJ 20 MG/2 ML VIAL IV SCH ×2 (09:32→16:00)
--- NOTE | 2020-10-01 14:21 | RAD ---
PROCEDURE:XR CHEST 1 VIEW HISTORY:covid-19 COMPARISON: September 29, 2020 FINDINGS: The heart is again seen to be enlarged.. The infiltrate seen within the left lung appears more pronounced than on the prior exam the patient has developed a small left-sided pleural effusion there is obscuration the left hemidiaphragm. The pulmonary infiltrate on the right appear stable. There is no evidence for pneumothorax. There are no acute bony or soft tissue abnormalities. IMPRESSION: Worsening pulmonary infiltrate within the left lung with obscuration the left hemidiaphragm Stable infiltrate seen throughout the right lung. Electronically signed by: Jake Villalpando MD 10/01/2020 2:19 PM [facility]
[2020-10-01] MEDS: REMDESIVIR 100 MG in SODIUM CHLORIDE 0.9% 250ML 250 ML IVPB SCH (16:00)
--- NOTE | 2020-10-01 16:13 | PN ---
SUPERVISING PHYSICIAN: Yaakov Arvizu MD DATE: 10/01/20 SUBJECTIVE: The patient is sitting up in bed. He has no complaints except he gets very short of breath with any exertion. He actually was shaving earlier today and was unable to complete his task due to his shortness of breath. Otherwise, sleeping without problems and has no nausea or vomiting. OBJECTIVE: VITAL SIGNS: Temperature 97.4, heart rate 103. Blood pressure 115/70, respiratory rate 20, oxygen saturation 87% to 93%. He either has a Venturi mask or BiPAP on. LUNGS: Diminished breath sounds throughout. HEART: Regular rate and rhythm, at times he is slightly tachycardiac. NEUROLOGIC: He is awake, alert, and oriented x3. LABORATORY: WBC 5.9, hemoglobin 13.9, hematocrit 40.2. Electrolytes are basically within normal limits. Preliminary blood cultures show no growth after 3 days. Chest x-ray shows worsening pulmonary infiltrate within the left lung with obscuration of the left hemidiaphragm, jack infiltrates seen throughout the right lung. All other labs and films have been reviewed via the EMR. IMPRESSION: 1. COVID-19 pneumonitis. 2. Atrial flutter, on C-PAP. 3. Diabetes mellitus, type 2. PLAN: We will continue present supportive care. I have ordered lab and chest x-ray for tomorrow. We will continue to monitor his 02 saturations closely. Hopefully, we can slowly wean him down, although his normal 02 saturations per his is about 90% on room air. We will continue with aggressive pulmonary hygiene and will continue to monitor him closely and follow as needed. #[id number] [facility]
[2020-10-01] MEDS ORDERED: SODIUM CHL 0.9% 50ML MIN-BAG+ 50 ML IVPB ONE (19:18)
[2020-10-01] MEDS ORDERED: SODIUM CHLORIDE 0.9% 250ML 250 ML ONE (19:18)
[2020-10-01] MEDS ORDERED: AZITHROMYCIN IV 500 MG VIAL IVPB ONE (19:18)
[2020-10-01] MEDS ORDERED: cefTRIAXone SODIUM 1 GM VIAL ONE (19:18)
[2020-10-01] MEDS: cefTRIAXone SODIUM 1 GM in SODIUM CHL 0.9% 50ML MIN-BAG+ 50 ML IVPB SCH (19:34)
[2020-10-01] MEDS: PRAVASTATIN SODIUM 20 MG TAB PO SCH (20:04)
[2020-10-01] MEDS: AZITHROMYCIN IV 500 MG in SODIUM CHLORIDE 0.9% 250ML 250 ML IVPB SCH (20:05)
[2020-10-01] MEDS: IV SET AND CAP CHANGE INJ INJ SCH (20:05)
[2020-10-02] MEDS: ALBUTEROL INHALER 64 PUFF/8GM INH SCH ×6 (00:30→21:55)
[2020-10-02] MEDS ORDERED: PANTOPRAZOLE SODIUM IV 40 MG VIAL ONE (03:16)
[2020-10-02] MEDS: PANTOPRAZOLE SODIUM IV 40 MG VIAL IV SCH (05:38)
--- NOTE | 2020-10-02 08:03 | RAD ---
EXAM DESCRIPTION: Chest,1 View CLINICAL HISTORY: 74 years Male, covid COMPARISON: Previous chest x-ray October 01, 2020 TECHNIQUE: AP portable chest. FINDINGS: Heart size is large with increased pulmonary vascularity. Extensive consolidating infiltrate in the right upper and right lower lobes. Peripheral consolidation in the left upper lobe with patchy infiltrate in the left perihilar region. Findings are consistent with pneumonia. Compared to previous study, right lung appears stable. Left lung appears slightly improved. No pulmonary mass or worrisome nodule. No pleural effusion. Bones are unremarkable. IMPRESSION: Bilateral pulmonary infiltrates consistent with pneumonia. Large heart with increased vascularity. Electronically signed by: Esvin Stahl MD 10/02/2020 8:02 AM [facility]
[2020-10-02] MEDS: INSULIN LISPRO 100 UNITS/ML PEN SUBCU SCH ×4 (08:46→20:46)
[2020-10-02] MEDS: MULTIPLE VITAMINS W/ MINERALS 1 EA TAB PO SCH (09:41)
[2020-10-02] MEDS: metFORMIN XR 500 MG TAB.ER.24 PO SCH ×2 (09:41→15:43)
[2020-10-02] MEDS: FISH OIL 1,200 MG CAP PO SCH (09:42)
[2020-10-02] MEDS: ASCORBIC ACID 500 MG TAB PO SCH (09:42)
[2020-10-02] MEDS: APIXABAN 5 MG TAB PO SCH ×2 (09:43→20:39)
[2020-10-02] MEDS: GLIMEPIRIDE 2 MG TAB PO SCH (09:43)
[2020-10-02] MEDS: guaiFENesin ER TAB 600 MG TAB PO SCH ×2 (09:43→20:39)
[2020-10-02] MEDS: DEXAMETHASONE INJ 10 MG/ML VIAL IV SCH (09:43)
[2020-10-02] MEDS: FUROSEMIDE INJ 20 MG/2 ML VIAL IV SCH ×2 (09:44→15:43)
[2020-10-02] MEDS: ACETAMINOPHEN 325 MG TAB PO PRN (09:51)
[2020-10-02] MEDS: REMDESIVIR 100 MG in SODIUM CHLORIDE 0.9% 250ML 250 ML IVPB SCH (15:43)
--- NOTE | 2020-10-02 18:25 | PN ---
SUPERVISING PHYSICIAN: Renan Luque MD DATE: 10/02/20 SUBJECTIVE: The patient is sitting at the side of the bed eating his meal. He says he feels much better. He still gets short of breath with getting up and going to the bathroom, but he continues to feel better. OBJECTIVE: VITAL SIGNS: Temperature 97.1, heart rate 95, blood pressure 103/71, respiratory rate 18, oxygen saturation 95% on 5 liters nasal cannula. LUNGS: Diminished breath sounds throughout. HEART: Regular rate and rhythm. NEUROLOGIC: He is awake, alert, and oriented x3. LABORATORY: WBCs 10.5, hemoglobin 13.8, hematocrit 40.6. Fibrinogen 722, D- dimer 176. Electrolytes are basically within normal limits with the exception that his chloride is 97. Ferritin 1,102. LD 186. C-reactive protein 5.8. MICROBIOLOGY: Preliminary blood cultures show no growth after 4 days. RADIOLOGY: Chest x-ray shows bilateral pulmonary infiltrates consistent with pneumonia, enlarged heart with increased vascularity. All other labs and films have been reviewed via the EMR. IMPRESSION: 1. COVID-19 pneumonitis. 2. Atrial flutter, on C-PAP. 3. Diabetes mellitus, type 2. PLAN: We will continue present supportive care. We will continue to monitor a chest x-ray and labs as well as his cultures. We wean oxygen as tolerated. [facility][id number] [facility]
[2020-10-02] MEDS: PRAVASTATIN SODIUM 20 MG TAB PO SCH (20:39)
[2020-10-02] MEDS: cefTRIAXone SODIUM 1 GM in SODIUM CHL 0.9% 50ML MIN-BAG+ 50 ML IVPB SCH (20:39)
[2020-10-02] MEDS: AZITHROMYCIN IV 500 MG in SODIUM CHLORIDE 0.9% 250ML 250 ML IVPB SCH (21:16)
[2020-10-03] MEDS ORDERED: PANTOPRAZOLE SODIUM TAB 40 MG PO ONE (03:16)
[2020-10-03] MEDS: ALBUTEROL INHALER 64 PUFF/8GM INH SCH ×6 (04:27→20:05)
[2020-10-03] MEDS: PANTOPRAZOLE SODIUM TAB 40 MG PO SCH (06:01)
[2020-10-03] MEDS: FISH OIL 1,200 MG CAP PO SCH (10:58)
[2020-10-03] MEDS: MULTIPLE VITAMINS W/ MINERALS 1 EA TAB PO SCH (10:58)
[2020-10-03] MEDS: APIXABAN 5 MG TAB PO SCH ×2 (10:58→20:10)
[2020-10-03] MEDS: GLIMEPIRIDE 2 MG TAB PO SCH (10:58)
[2020-10-03] MEDS: INSULIN LISPRO 100 UNITS/ML PEN SUBCU SCH ×4 (10:59→20:11)
[2020-10-03] MEDS: metFORMIN XR 500 MG TAB.ER.24 PO SCH ×2 (10:59→16:32)
[2020-10-03] MEDS: DEXAMETHASONE INJ 10 MG/ML VIAL IV SCH (10:59)
[2020-10-03] MEDS: ASCORBIC ACID 500 MG TAB PO SCH (10:59)
[2020-10-03] MEDS: guaiFENesin ER TAB 600 MG TAB PO SCH ×2 (10:59→20:10)
[2020-10-03] MEDS: FUROSEMIDE INJ 20 MG/2 ML VIAL IV SCH ×2 (10:59→16:32)
--- NOTE | 2020-10-03 15:36 | PN ---
SUPERVISING PHYSICIAN: Renan Luque MD DATE: 10/03/20 SUBJECTIVE: The patient is sitting on the side of the bed. He has no shortness of breath at rest, but he still feels quit weak when he gets up to go to the bathroom. We discussed his plan of care. He denies any chest pain, nausea or vomiting. OBJECTIVE: VITAL SIGNS: Temperature 97, heart rate 103, blood pressure 115/78, respiratory rate 18, oxygen saturation 91% on 3 liters nasal cannula. LUNGS: Diminished breath sounds throughout. HEART: Regular rate and rhythm. At times, he is slightly tachycardic. NEUROLOGIC: He is awake, alert, and oriented x3. LABORATORY: WBCs 6.2, hemoglobin 13.8, hematocrit 40.1. Fibrinogen 722, D- dimer 176. Electrolytes are basically within normal limits with the exception that his chloride is low at 99. C-reactive protein 6.2. All other labs and films have been reviewed via the EMR. IMPRESSION: 1. COVID-19 pneumonitis. 2. Atrial flutter, on C-PAP. 3. Diabetes mellitus, type 2. PLAN: We will continue present supportive care. We will continue to monitor his labs as well as his cultures. We will continue with routine COVID medications and try to wean his oxygen as tolerated. He may need to go home on home oxygen. We will repeat his lab and chest x-ray in the morning. #[id number] [facility]
[2020-10-03] MEDS: cefTRIAXone SODIUM 1 GM in SODIUM CHL 0.9% 50ML MIN-BAG+ 50 ML IVPB SCH (19:56)
[2020-10-03] MEDS: PRAVASTATIN SODIUM 20 MG TAB PO SCH (20:10)
[2020-10-03] MEDS: AZITHROMYCIN IV 500 MG in SODIUM CHLORIDE 0.9% 250ML 250 ML IVPB SCH (20:38)
[2020-10-04] MEDS: ACETAMINOPHEN 325 MG TAB PO PRN (05:07)
[2020-10-04] MEDS: ALBUTEROL INHALER 64 PUFF/8GM INH SCH ×6 (05:27→21:15)
[2020-10-04] MEDS: PANTOPRAZOLE SODIUM TAB 40 MG PO SCH (06:10)
--- NOTE | 2020-10-04 06:32 | RAD ---
EXAM: Chest,1 View HISTORY: covid COMPARISON: Chest 1 View AP 10/02/2020 TECHNIQUE: Chest 1 View AP FINDINGS: Trachea midline. Heart size normal. No significant change in moderate hazy primarily bilateral mid/lower lung field opacities. No significant pleural effusion or pneumothorax. Thoracic spine degenerative disease. IMPRESSION: No significant change in moderate hazy primarily bilateral mid/lower lung field opacities. Electronically signed by: Jake Morejon MD 10/04/2020 6:30 AM [facility]
[2020-10-04] MEDS: guaiFENesin ER TAB 600 MG TAB PO SCH ×2 (08:12→20:04)
[2020-10-04] MEDS: metFORMIN XR 500 MG TAB.ER.24 PO SCH ×2 (08:12→16:27)
[2020-10-04] MEDS: MULTIPLE VITAMINS W/ MINERALS 1 EA TAB PO SCH (08:12)
[2020-10-04] MEDS: FISH OIL 1,200 MG CAP PO SCH (08:12)
[2020-10-04] MEDS: GLIMEPIRIDE 2 MG TAB PO SCH (08:13)
[2020-10-04] MEDS: DEXAMETHASONE INJ 10 MG/ML VIAL IV SCH (08:13)
[2020-10-04] MEDS: ASCORBIC ACID 500 MG TAB PO SCH (08:13)
[2020-10-04] MEDS: APIXABAN 5 MG TAB PO SCH ×2 (08:13→20:04)
[2020-10-04] MEDS: FUROSEMIDE INJ 20 MG/2 ML VIAL IV SCH (08:13)
[2020-10-04] MEDS: INSULIN LISPRO 100 UNITS/ML PEN SUBCU SCH ×4 (08:13→20:05)
--- NOTE | 2020-10-04 18:25 | PN ---
SUPERVISING PHYSICIAN: Renan Luque MD DATE: 10/04/20 SUBJECTIVE: The patient notes he is doing a little bit better today. He gets a little bit of shortness of breath when he gets up but he has no major complaints. OBJECTIVE: VITAL SIGNS: Temperature 97.3, pulse 92, blood pressure 112/88, respiratory rate 18, oxygen saturation 93% on 3 liters nasal cannula. GENERAL: The patient looks to be resting comfortably and in no distress. CHEST: Sounds diminished towards the bases. HEART: Regular rate and rhythm. ABDOMEN: Soft, non-tender, positive bowel sounds. EXTREMITIES: Without edema. NEUROLOGIC: He is alert, and oriented x3. LABORATORY: White count 6,300, differential shows to be without a left shift. with just a decreased lymphocyte count, hemoglobin 13.5, hematocrit 38.8, platelet count 397,000. D-dimer less than 131. Fibrinogen 604.Chemistries show normal electrolytes with a slightly elevated BMP at 36, creatinine 0.86. Blood sugars range between 153 and 354. Liver functions within normal limits. Ferritin 1131, magnesium 2.1. C-reactive protein 3.7 which is down from 27.4 on admission. MICROBIOLOGY: Blood cultures remain negative after 5 days. RADIOLOGY: Repeat chest x-ray today per radiology interpretation shows no significant change in moderate hazy bilateral mid/lower lung field opacities.. IMPRESSION: 1. COVID-19 pneumonitis. 2. Atrial flutter, on C-PAP. 3. History of congestive heart failure with grade 2 diastolic dysfunction with last echocardiogram showing to be 60 to 65% on 04/11/20 with moderate left atrial enlargement. 4. Diabetes mellitus, type 2. PLAN: We will continue with current plan of care. Will continue his medications. Hope to wean him off oxygen. I anticipate he will probably need to go home on some oxygen. Will follow his labs and x-rays as needed. I have decreased his Lasix from 20 mg IV b.i.d. to 20 mg p.o. as well as added some potassium orally, 20 mEq daily. Until we can transition him to outpatient management, we will continue to monitor and treat as needed. #[id number] [facility]
[2020-10-04] MEDS: IV SET AND CAP CHANGE INJ INJ SCH (20:04)
[2020-10-04] MEDS: cefTRIAXone SODIUM 1 GM in SODIUM CHL 0.9% 50ML MIN-BAG+ 50 ML IVPB SCH (20:04)
[2020-10-04] MEDS: PRAVASTATIN SODIUM 20 MG TAB PO SCH (20:05)
[2020-10-04] MEDS: AZITHROMYCIN IV 500 MG in SODIUM CHLORIDE 0.9% 250ML 250 ML IVPB SCH (20:49)
[2020-10-05] MEDS: ALBUTEROL INHALER 64 PUFF/8GM INH SCH ×6 (00:08→21:14)
[2020-10-05] MEDS: ACETAMINOPHEN 325 MG TAB PO PRN (05:02)
[2020-10-05] MEDS: PANTOPRAZOLE SODIUM TAB 40 MG PO SCH (06:01)
[2020-10-05] MEDS: INSULIN LISPRO 100 UNITS/ML PEN SUBCU SCH ×4 (08:55→20:25)
[2020-10-05] MEDS: POTASSIUM CHLORIDE 20 MEQ TAB PO SCH (09:44)
[2020-10-05] MEDS: metFORMIN XR 500 MG TAB.ER.24 PO SCH ×2 (09:44→17:03)
[2020-10-05] MEDS: guaiFENesin ER TAB 600 MG TAB PO SCH ×2 (09:45→20:14)
[2020-10-05] MEDS: APIXABAN 5 MG TAB PO SCH ×2 (09:45→20:14)
[2020-10-05] MEDS: DEXAMETHASONE INJ 10 MG/ML VIAL IV SCH (09:45)
[2020-10-05] MEDS: MULTIPLE VITAMINS W/ MINERALS 1 EA TAB PO SCH (09:45)
[2020-10-05] MEDS: ASCORBIC ACID 500 MG TAB PO SCH (09:45)
[2020-10-05] MEDS: FISH OIL 1,200 MG CAP PO SCH (09:45)
[2020-10-05] MEDS: GLIMEPIRIDE 2 MG TAB PO SCH (09:45)
[2020-10-05] MEDS: FUROSEMIDE 40 MG TAB PO SCH (09:45)
--- NOTE | 2020-10-05 15:03 | PN ---
SUPERVISING PHYSICIAN: Renan Luque MD DATE: 10/05/20 SUBJECTIVE: The patient is sitting on the edge of the bed. He still gets some shortness of breath with ambulation. Otherwise, he is doing well. Hopefully, they will send him home today but at this point, we have no oxygen that is available to discharge. OBJECTIVE: VITAL SIGNS: Temperature 97.8, pulse 89, blood pressure 114/71, respiratory rate 18, oxygen saturation 92% on 3 liters nasal cannula at rest. GENERAL: The patient looks to be resting comfortably and in no distress. CHEST: Sounds diminished towards the bases. HEART: Regular rate and rhythm. ABDOMEN: Soft, non-tender, positive bowel sounds. EXTREMITIES: Without edema. NEUROLOGIC: He is alert, and oriented x3. LABORATORY: No additional laboratory other than blood sugars that are showing between 149 up to 354. RADIOLOGY: No additional radiographic studies today. IMPRESSION: 1. COVID-19 pneumonitis. 2. Atrial flutter, on C-PAP. 3. History of congestive heart failure with grade 2 diastolic dysfunction with last echocardiogram showing to be 60 to 65% on 04/11/20 with moderate left atrial enlargement. 4. Diabetes mellitus, type 2. PLAN: We will continue with current plan of care at this point with Decadron, ceftriaxone, azithromycin and he is on Eliquis. He remains on sliding scale and Protonix. As soon as we can get home oxygen arranged for him, he should be able to discharge home. It does need to be noted that we did change his Lasix yesterday to p.o. and has been doing fine with that, 200 mg daily is Lasix with 20 mEq potassium which he will need to go home on. Until then, we will continue to monitor and treat as needed. [facility][id number] [facility]
[2020-10-05] MEDS: cefTRIAXone SODIUM 1 GM in SODIUM CHL 0.9% 50ML MIN-BAG+ 50 ML IVPB SCH (19:35)
[2020-10-05] MEDS: AZITHROMYCIN IV 500 MG in SODIUM CHLORIDE 0.9% 250ML 250 ML IVPB SCH (20:12)
[2020-10-05] MEDS: PRAVASTATIN SODIUM 20 MG TAB PO SCH (20:14)
[2020-10-06] MEDS: ALBUTEROL INHALER 64 PUFF/8GM INH SCH ×2 (00:30→05:00)
[2020-10-06] MEDS: ACETAMINOPHEN 325 MG TAB PO PRN (06:00)
[2020-10-06] MEDS: PANTOPRAZOLE SODIUM TAB 40 MG PO SCH (06:00)
[2020-10-06] MEDS: INSULIN LISPRO 100 UNITS/ML PEN SUBCU SCH (08:03)
[2020-10-06] MEDS: metFORMIN XR 500 MG TAB.ER.24 PO SCH (09:03)
[2020-10-06] MEDS: FUROSEMIDE 40 MG TAB PO SCH (09:03)
[2020-10-06] MEDS: APIXABAN 5 MG TAB PO SCH (09:04)
[2020-10-06] MEDS: GLIMEPIRIDE 2 MG TAB PO SCH (09:04)
[2020-10-06] MEDS: ASCORBIC ACID 500 MG TAB PO SCH (09:04)
[2020-10-06] MEDS: MULTIPLE VITAMINS W/ MINERALS 1 EA TAB PO SCH (09:04)
[2020-10-06] MEDS: POTASSIUM CHLORIDE 20 MEQ TAB PO SCH (09:04)
[2020-10-06] MEDS: DEXAMETHASONE INJ 10 MG/ML VIAL IV SCH (09:04)
[2020-10-06] MEDS: FISH OIL 1,200 MG CAP PO SCH (09:04)
[2020-10-06] MEDS: guaiFENesin ER TAB 600 MG TAB PO SCH (09:06)
[2020-10-06 10:54] VITALS: BP 142/77; TEMP 98; O2SAT 95
--- NOTE | 2020-10-07 11:14 | DS ---
SUPERVISING PHYSICIAN: Richard Luque MD ADMISSION DIAGNOSES: 1. COVID-19 pneumonitis. 2. Obstructive sleep apnea utilizing CPAP at home. 3. Hypertension. 4. Hyperlipidemia. 5. Diabetes mellitus, type 2. DISCHARGE DIAGNOSES: 1. COVID-19 pneumonitis. 2. Atrial flutter, on C-PAP. 3. History of congestive heart failure with grade 2 diastolic dysfunction with last echocardiogram showing to be 60 to 65% on 04/11/20 with moderate left atrial enlargement. REASON FOR HOSPITALIZATION: This is a 74-year-old male patient who came to the hospital with worsening shortness of breath. Apparently he was diagnosed with COVID-19 on Friday. He was started on oral steroids. He was not placed on azithromycin due to QT prolongation. However, he continued to have fever as well as O2 saturations dropping to about 86 to 88%. He came to the Emergency Room with those complaints and his workup showed hypoxia in the ER. He was about 88%. He was placed on nasal cannula and increased to 96%. Chemistry was unremarkable. Lactic acid was normal. CRP was 22.4. BNP slightly elevated at 168. Coagulation studies show fibrinogen 748, but D-dimer less than 131. CBC unremarkable. He did have a 94.5% left shift. He was referred for admission due to hypoxemic respiratory failure and COVID-19. LABORATORY STUDIES: CBC on discharge showed a white count of 6,300, hemoglobin 13.5, hematocrit 38.8, platelet count 397,000, Differential showed to be without a left shift but he did have a low lymphocytic count. Coagulation studies showed D-dimer as normal at less than 131. Fibrinogen was down to 604. Chemistries showing to be stable with creatinine of 0.86. C-reactive protein was down to 3.7 from admission of high of 27.4. TSH was normal at 2.06. MICROBIOLOGY: Blood cultures remained for 5 days. RADIOLOGY: Final chest x-ray on 10/04 per radiology interpretation showed no significant changes in moderate hazy primarily bilateral mid lower lung field opacities. HOSPITAL COURSE: Mr. Velazquez was admitted for treatment of Covid pneumonia. He was treated with medications including azithromycin, Rocephin, Decadron. He showed good response to treatment and was still requiring oxygen which was made available at discharge. On day of discharge, he was showing to be stable enough to continue with outpatient management. Therefore, he was discharged home. PLAN: Mr. Velazquez was discharged on 10/06/90 with instructions to followup with Dr. Arvizu. He is to call his office on 10/09/20, to get a followup appointment. He was given instructions to wear oxygen at home, to keep his 02 saturations between 92 and 94%. At time of discharge, vital signs were showing temperature of 98, pulse 76, blood pressure 142/77, respirations 20. He was still maintaining 95% on 3 liter nasal cannula at rest. He is to take his medications as directed which include Decadron, cefdinir and albuterol. He was given instructions to return to the Emergency Department should he have any concerning symptoms. He is to follow his normal diet which includes diabetic diet. He is to increase activity as tolerated. MEDICATIONS PRESCRIBED ON DISCHARGE: 1. Decadron 6 mg daily, #4 with no refills. 2. Cefdinir 300 mg twice a day, #12, no refills. 3. Albuterol inhalers, 2 puffs as needed every 4 hours, 1 refill. DISPOSITION: The patient is discharged home. CONDITION ON DISCHARGE: Stable and improved. #[id number] [facility]
== END 2020-10-06 12:30 | disposition home or self-care (01) | DRG 177 ==
LOC: ER 12:42 → MS 16:28 → OBSVTOIN 16:28
PROVIDERS: ADMIT Nurse Practitioner; ATTEND Nurse Practitioner Family
DX: U07.1 COVID-19 (principal); J12.89 Other viral pneumonia; I48.92 Unspecified atrial flutter; J96.91 Respiratory failure, unspecified with hypoxia; I50.32 Chronic diastolic (congestive) heart failure; Z68.41 Body mass index [BMI] 40.0-44.9, adult; I45.81 Long QT syndrome; G47.33 Obstructive sleep apnea (adult) (pediatric); I11.0 Hypertensive heart disease with heart failure; E78.5 Hyperlipidemia, unspecified; E11.9 Type 2 diabetes mellitus without complications; E66.01 Morbid (severe) obesity due to excess calories; Z87.891 Personal history of nicotine dependence; Z79.01 Long term (current) use of anticoagulants; Z79.84 Long term (current) use of oral hypoglycemic drugs; Z79.52 Long term (current) use of systemic steroids; Z79.899 Other long term (current) drug therapy